=== PATIENT | female | born 1965 | race Caucasian/White ===

== ENCOUNTER → 2018-04-30 | Outpatient (CLI) | payer BC ==
--- NOTE | 2018-04-30 09:44 | MR ---
EXAMINATION TYPE: MR pelvis wo/w con DATE OF EXAM: 04/30/2018 COMPARISON: None HISTORY: Hip and leg pain, breast CA, 2015 CONTRAST: Standard multiplanar, multisequence MRI departmental protocol utilizing 7.5 mL intravenous Gadavist g adolinium contrast. Bowel peristalsis results in significant artifact somewhat limiting examination. FINDINGS: Uterus: The uterus measures 7.4 x 2.5 cm. No distinct uterine mass. Endometrium: Endometrium is within normal limits and measures 5 mm in greatest AP dimension. No evide nce for endometrial irregularity. Ovaries: Ovaries are diminutive in size. No evidence for ovarian cystic or solid lesion. No adnexal m asses appreciated. Free fluid: None. No evidence for pelvic adenopathy. Osseous structures appear to be intact without evidence for fracture or osseous lesion. Degenerative changes lumbar spine. No evidence for bony metastatic disease. Correlate with upcoming bone scan. No soft tissue masses appreciated. IMPRESSION: 1. No distinct abnormality to account for the patient's pelvic pain.
--- NOTE | 2018-04-30 16:00 | NM ---
EXAMINATION TYPE: NM bone scan whole body DATE OF EXAM: 04/30/2018 COMPARISON: None HISTORY: Pain, breast cancer history Delayed whole-body scanning was performed following the injection of 26.9 mCi Tc 99m MDP. Images wer e acquired 3.5 hours post injection. FINDINGS: There is some mild uptake at the pedicles of the L4 vertebral body and on the left at L5 there is mikayla e focal radiotracer accumulation at the sternomanubrial junction. IMPRESSION: 1. Scattered nonspecific areas of uptake including the lower lumbar spine pedicles external manubrial junction degenerative changes as well as early metastasis could be included within the differential.
== END | disposition home or self-care (01) ==
LOC: RADMRIMAIN 07:58
PROVIDERS: ATTEND Internal Medicine Hematology & Oncology
DX: C50.919 Malignant neoplasm of unspecified site of unspecified female breast (principal); R52 Pain, unspecified
CPT/HCPCS: 72197; 78306; A9503; A9581

== ENCOUNTER → 2018-06-03 | Outpatient (CLI) | payer BC ==
--- NOTE | 2018-06-03 12:33 | MR ---
EXAMINATION TYPE: MR tspine/lspine wo/w con DATE OF EXAM: 06/03/2018 COMPARISON: Bone scan 04/30/2018 HISTORY: pain, mets, breast ca TECHNIQUE: Multiplanar, multisequence images of the lumbar and thoracic spine is performed without and with IV c ontrast, utilizing 8 mL intravenous Gadavist FINDINGS: Sagittal images of the lumbar spine show vertebral body heights and alignment is remarkable for minimal anterolisthesis grade 1 L3-4. The intervertebral discs demonstrate loss of disc height s ignal compatible disc desiccation and degenerative disc disease, there is multilevel spondylosis with endplate discogenic marrow signal change. The conus medullaris is normal in position and signal. Ellis morl's node formation present at inferior endplate L1 and T12, superior endplate L4 and L2 L5-S1: No evident disc herniation, no significant central canal stenosis. No foraminal encroachment. There is facet arthropathy. L4-5: Increase signal in the posterior aspect of the disc may be due to an annular tear, there is pos terior broad-based disc bulge present, facet arthropathy with hypertrophy ligamentum flavum encroache s somewhat on the lateral recesses, circumferential disc bulge encroaches somewhat on the neural fora men right greater than left. There is a trefoil appearance of the thecal sac, mild to moderate centra l canal stenosis. L3-4: Listhesis contributes to cause moderate spinal stenosis or facet arthropathy with hypertrophy l igamentum flavum causing posterior lateral mass effect on the thecal sac, listhesis also contributes to cause bilateral foraminal encroachment. L2-3: Broad-based posterior disc bulge is mild anterior mass effect on the thecal sac, no significant central canal stenosis. There is facet arthropathy, no significant foraminal encroachment. L1-2: Mild posterior broad-based disc bulge causes slight anterior mass effect on the thecal sac. No significant central stenosis or foraminal encroachment. No significant abnormal enhancement following contrast administration IMPRESSION: Degenerative disc disease, spinal stenosis, facet arthropathy and foraminal encroachment. Metastatic disease is not evident. Thoracic spine MRI: Thoracic vertebral bodies show preserved height and alignment. There is no signif icant spinal stenosis, foraminal encroachment. There is multilevel spondylosis with endplate discogen ic marrow signal change. Multilevel loss of disc height and signal compatible disc desiccation and de generative disc disease. C7-T1 shows a posterior disc bulge causing mild anterior mass effect on the thecal sac. T10-11 shows posterior extension of disc complex causing mild anterior mass effect on the thecal sac, there is some facet arthropathy encroaching posterior laterally causing some local mass effect. Face t arthropathy also noted at the lower thoracic level. Mild disc bulges noted at T9-10. There is no abnormal enhancement following contrast menstruation. IMPRESSION: Degenerative disc disease.
== END | disposition home or self-care (01) ==
LOC: RADMRIMAIN 09:19
PROVIDERS: ATTEND Internal Medicine Hematology & Oncology
DX: C50.919 Malignant neoplasm of unspecified site of unspecified female breast (principal); M48.061 Spinal stenosis, lumbar region without neurogenic claudication; M51.36 Other intervertebral disc degeneration, lumbar region; M51.34 Other intervertebral disc degeneration, thoracic region; M46.96 Unspecified inflammatory spondylopathy, lumbar region
CPT/HCPCS: 72157; 72158; A9581

== ENCOUNTER → 2018-12-18 | Outpatient (CLI) | payer BC ==
--- NOTE | 2018-12-18 08:41 | CT ---
EXAMINATION TYPE: CT brain wo/w con DATE OF EXAM: 12/18/2018 COMPARISON: None HISTORY: 53-year-old female with frequent Migraine, unspecified, not intractable TECHNIQUE: Examination was done in axial plane before and after administration of 100 mL Isovue 300 intravenous contrast. Coronal and sagittal reconstructions performed. CT DLP: 1784.2 mGycm Automated exposure control for dose reduction was used. FINDINGS: There is a calcified 1.2 cm round extra-axial lesion along the anterior midline falx. There is no evidence of acute intracranial hemorrhage, acute ischemic changes, mass effect, or extra -axial fluid collection. There is no effacement of cerebral sulci or basal subarachnoid cisterns. T here is no hydrocephalus. There is no midline shift. Madsen-white matter distinction is preserved. No other abnormal enhancing lesions. Dural venous sinuses are patent The patient's gaze is divergent. This may reflect underlying strabismus. Further clinical correlation recommended. Mastoid air cells and paranasal sinuses are clear. IMPRESSION: 1. The patient's gaze is frankly divergent. This may reflect underlying strabismus. Correlate with ph ysical exam findings. 2. A 1.2 cm round, calcified extra-axial lesion along the anterior midline falx suggestive of a menin gioma. Consider a 6-12 month follow-up MRI to reassess. 3. No acute intracranial abnormality seen.
== END | disposition home or self-care (01) ==
LOC: RADCTMAIN 06:43
PROVIDERS: ATTEND Family Medicine
DX: G93.89 Other specified disorders of brain (principal); G43.909 Migraine, unspecified, not intractable, without status migrainosus
CPT/HCPCS: 70470; Q9967

== ENCOUNTER → 2019-01-16 | Outpatient (CLI) | payer BC ==
--- NOTE | 2019-01-16 12:40 | MR ---
PRE AND POSTCONTRAST ENHANCED MRI OF THE BRAIN: CLINICAL HISTORY: R51 Headache CONTRAST: 7.5ml gadavist Multiplanar and multispin-echo imaging of the brain was performed both before and after the administr ation of contrast. The ventricles, basal cisterns and sulci overlying the cerebral convexities are within normal limits. There is no evidence for midline shift or mass effect. Acute intracranial hemorrhage or extra-axial collection is not evident. There are no abnormal areas of increased or decreased signal intensity within the brain parenchyma. Following contrast administration, there is no evidence for pathologic enhancement or enhancing mass. The paranasal sinuses and mastoid air cells are well-aerated. IMPRESSION: Unremarkable pre and postcontrast enhanced MRI of the brain.
== END | disposition home or self-care (01) ==
LOC: RADMRIMAIN 11:46
PROVIDERS: ATTEND Nurse Practitioner Adult Health
DX: R51 Headache (principal)
CPT/HCPCS: 70553; A9585

== ENCOUNTER → 2022-04-10 | Outpatient (CLI) | payer SELFPAY ==
--- NOTE | 2022-04-10 16:21 | US ---
EXAMINATION TYPE: US kidneys/renal and bladder DATE OF EXAM: 04/10/2022 COMPARISON: NONE CLINICAL HISTORY: 56-year-old female R31.9 Hematuria, M54.50 Low back pain. TECHNIQUE: Multiple sonographic images of the kidneys and bladder are obtained. FINDINGS: EXAM MEASUREMENTS: Right Kidney: 11.7 x 5.6 x 4.3 cm Left Kidney: 11.6 x 5.6 x 5.8 cm Right Kidney: There is mild pelviectasis versus an extrarenal pelvis. No calyceal dilatation to sugge st hydronephrosis. No discrete masses seen. Left Kidney: No hydronephrosis or masses seen Bladder: wnl Bilateral Jets seen: Yes IMPRESSION: 1. No hydronephrosis. 2. No renal calculus or kidney mass identified. However, note that ultrasound has low sensitivity for the detection of small calculi or small solid renal masses.
== END | disposition home or self-care (01) ==
LOC: RADUSWWP 13:10
PROVIDERS: ATTEND Internal Medicine Hematology & Oncology
DX: R31.9 Hematuria, unspecified (principal); M54.50 Low back pain, unspecified
CPT/HCPCS: 76770

== ENCOUNTER → 2022-05-21 | Outpatient (CLI) | payer SELFPAY ==
--- NOTE | 2022-05-22 02:54 | MR ---
EXAMINATION TYPE: MR lumbar spine wo/w con DATE OF EXAM: 05/21/2022 COMPARISON: 06/03/2018 HISTORY: Low back pain, history of breast cancer CONTRAST: Standard multiplanar, multisequence MRI departmental protocol images were obtained without contrast a nd with 7 ml mL intravenous Gadavist gadolinium contrast. The lumbar vertebrae have normal alignment. There is mild degenerative disc space narrowing throughou t the lumbar spine. No compression fracture. No lumbar paraspinal mass. There is hypertrophic facet a rthropathy and posterior disc bulging at L3-4 and L4-5. There is resultant moderate spinal stenosis. There is mild narrowing of the neural foramina due to disc space narrowing and facet arthropathy at m ultiple levels. No evidence of focal bone destruction. Contrast images show no pathologic enhancement . The sacroiliac joints are intact. IMPRESSION: No evidence of osseous metastatic disease. There is L3-4 and L4-5 bony spinal stenosis that has progressed compared to old exam. Mild posterior disc bulging at L3-4 and L4-5. Facet arthropathy. No fracture seen.
== END | disposition home or self-care (01) ==
LOC: RADMRIMAIN 15:24
PROVIDERS: ATTEND Internal Medicine Hematology & Oncology
DX: M47.816 Spondylosis without myelopathy or radiculopathy, lumbar region (principal); M51.86 Other intervertebral disc disorders, lumbar region; M48.061 Spinal stenosis, lumbar region without neurogenic claudication; M99.73 Connective tissue and disc stenosis of intervertebral foramina of lumbar region
CPT/HCPCS: 72158; A9585

== ENCOUNTER → 2023-10-16 | Outpatient (CLI) | payer OTHER ==
--- NOTE | 2023-10-16 18:17 | NM ---
EXAMINATION TYPE: NM bone scan whole body DATE OF EXAM: 10/16/2023 COMPARISON: NONE HISTORY: Breast cancer Delayed whole-body scanning was performed following the injection of 22.8 mCi Tc 99m MDP. Images wer e acquired 5.5 hours post injection. FINDINGS: There is a focal area of uptake at the sternomanubrial junction. Metastatic lesion is not excluded There is some mild uptake within the anterior right mandible and within the central upper and left la teral mid cervical spine. Findings are nonspecific but can be related to degenerative change. There i s focal uptake posteriorly at the L5 level. Metastasis at this level is not excluded. IMPRESSION: 1. Uptake within the region of the L5 pedicles. Metastasis not excluded. 2. Nonspecific uptake within the cervical spine and right mandible can be related to degenerative reno nges.
== END | disposition home or self-care (01) ==
LOC: RADNMMAIN 07:07
PROVIDERS: ATTEND Internal Medicine Hematology & Oncology
DX: C50.919 Malignant neoplasm of unspecified site of unspecified female breast (principal); F41.9 Anxiety disorder, unspecified; Z13.89 Encounter for screening for other disorder; M47.816 Spondylosis without myelopathy or radiculopathy, lumbar region
CPT/HCPCS: 78306; A9503

== ENCOUNTER → 2023-11-11 | Outpatient (CLI) | payer OTHER ==
--- NOTE | 2023-11-12 08:47 | MR ---
EXAMINATION TYPE: MR lumbar spine wo/w con DATE OF EXAM: 11/11/2023 7:25 PM CLINICAL INDICATION:Female, 58 years old with history of C50.919 MALIGNANT NEOPLASM OF UNSP SITE OF U NSPECI; PHH, Hx Breast cancer, Pain low back into buttocks and front of thighs COMPARISON: None TECHNIQUE: Multi planar, multi sequence imaging was performed utilizing: T1-weighted, T2-weighted, a nd turbo inversion recovery imaging of the lumbar spine. IV Contrast: 7.5 cc Gadavist. (None if empty) FINDINGS: Alignment: The lumbar vertebral bodies have preserved heights with grade 1 anterolisthesis of L3 on L 4 and L4 and L5. Cord: The conus medullaris and the distal spinal cord appear unremarkable with regards to their signa l intensity and morphology. Bones/Discs: Mild degeneration changes throughout the spine with osteophyte formation and facet joint arthropathy. There is inversion recovery edema the bilateral L4 and L5 pedicles. Intervertebral disc signal is maintained. New mass like postcontrast enhancement. T12-L1: No evidence of significant spinal canal stenosis or neural foraminal stenosis. L1-L2: No evidence of significant spinal canal stenosis. Facet joint arthropathy moderate bilateral n eural foraminal stenosis. L2-L3: No evidence of significant spinal canal stenosis. Facet joint arthropathy moderate bilateral n eural foraminal stenosis. L3-L4: Disc uncovering from grade 1 anterolisthesis and facet joint arthropathy with moderate to carmina re spinal canal stenosis and moderate bilateral neural foraminal stenosis. L4-L5: Disc uncovering from grade 1 anterolisthesis and facet joint arthropathy with moderate to carmina re spinal canal stenosis and moderate bilateral neural foraminal stenosis. Mild enhancement around th e facet joints. L5-S1: The disc is rounded posterior morphology without significant spinal canal stenosis. Facet join t arthropathy with mild bilateral neural foraminal stenosis. No significant spinal canal or neural foraminal stenosis in the remainder of the visualized levels. Other findings: None. IMPRESSION: 1. No definitive evidence of disc herniation. 2. Multilevel disc degeneration with associated osteoarthritic changes with multilevel moderate neur al foraminal stenosis 3. Grade 1 anterolisthesis of L3 on L4 and L4 and L5 with moderate to severe spinal canal stenosis a t these levels. There is associated bony edema likely stress reaction involving the pedicles at all L 4 and L5. 4. Mild enhancement around the L4-L5 facet joints likely reactive 2 degeneration. No masslike enhanc ement identified.
== END | disposition home or self-care (01) ==
LOC: RADMRIMAIN 17:54
PROVIDERS: ATTEND Internal Medicine Hematology & Oncology
DX: C50.919 Malignant neoplasm of unspecified site of unspecified female breast (principal); Z87.59 Personal history of other complications of pregnancy, childbirth and the puerperium
CPT/HCPCS: 72158; A9585

== ENCOUNTER → 2024-01-13 | Outpatient (CLI) | payer OTHER ==
--- NOTE | 2024-01-13 18:21 | CT ---
EXAMINATION TYPE: CT lumbar spine wo con DATE OF EXAM: 01/13/2024 4:41 PM COMPARISON: None HISTORY: Chronic lower back pain. CT DLP: 618.3 mGycm Automated exposure control for dose reduction was used. Technique: Unenhanced CT of the lumbar spine was performed. Bone and soft tissue window settings are submitted as well as coronal and sagittal reconstructions. Findings: The lumbar vertebral segments are normal in height and there is no evidence of fracture. There is a g rade 1 anterolisthesis of L3 on L4 and of L4 on L5. There is mild disc space narrowing and spondylosis at the L3-4 and L4-5 levels indicating mild degene rative disc disease. There is marked facet arthropathy at the L3-4, L4-5 and L5-S1 levels and mild facet arthropathy at th e L1-2 and L2-3 levels. Secondary to facet arthropathy, thickening of ligamentum flavum and the anterolisthesis, there is a s evere spinal stenosis at the L3-4 level and at the L4-5 level. Evaluation for disc herniation is limi brown by the technique but no large disc herniations are seen. IMPRESSION: 1. No lumbar spine fracture. 2. Grade 1 anterolisthesis of L3 on L4 and of L4 on L5. 3. Marked facet degeneration in the lower lumbar spine. 4. Severe spinal stenosis at the L3-4 and L4-5 levels.
== END | disposition home or self-care (01) ==
LOC: RADCTMAIN 15:31
PROVIDERS: ATTEND Orthopaedic Surgery
DX: M48.061 Spinal stenosis, lumbar region without neurogenic claudication (principal); M43.16 Spondylolisthesis, lumbar region
CPT/HCPCS: 72131

== ENCOUNTER 2024-07-28 07:00 | Observation (INO) | payer OTHER ==
[2024-07-27 12:29] VITALS: BMI 31.4
--- NOTE | 2024-07-27 19:47 | P.HPOR ---
History of Present Illness H&P Date: 07/27/24 .T:Title: Spine Surgery Clinical and Risk Review Razia is a 58 yo female presenting for evaluation of Low back pain and LE weakness as well as pain. It was my pleasure to have seen and examined Razia. In our visit today we have had a chance to go over subjective complaints, physical examination findings and treatments including the natural course history without intervention and various interventional options. The patients imaging demonstrates: L3-4 grade I spondylolisthesis, unstable, L4- 5 Grade I spondylolisthesis unstable, L3-5 Spondylosis with disc degeneration , height loss and facet arthropathy and bogginess due to slip and collapse that is moderate to severe with moderate to seveve central and b/l foraminal stenosis. On physical exam, Razia demonstrates LE paresthesias, low back pain, continuous despite conservative measuress like PT, HEP, Rx and OTC medications several rounds of Prednisone, MICHELLE and TFESI injetions as well as Flexeril, [place], Motrin, and several supplement trials for symptomatic treatment. LE weakness noted with DF due to compression and foraminal stenosis. I have explained to the patient that as their condition progresses it will cause further neurological deficits and eventual paralysis. Based on the patients imaging, physical exam, and the rapid progression and disabling nature of their symptoms, at this time I recommend surgery in the form or a: L3-5 decompression and fusion. I discussed the risk and benefits of this procedure at length with Razia. The patient agreed to considered pursuing the procedure abovementioned. Prior to surgery, she should follow up with her PCP (Cardio, ID, IM etc) for clearance. Questions were invited and answered, and the patient wishes to proceed as outlined below. IMPRESSION: 1. L3-4 AND L4-5 GRADE I SPONDYLOLISTHESIS, UNSTABLE 2. L3-5 SPONDYLOSIS WITH RADICULOPATHY 3. L3-5 STENOSIS WITH NEUROGENIC CLAUDICATION 4. FORAMINAL STENOSIS B/L L3-5 5. LOW BACK PAIN PLAN: Currently, I am recommendin.L3-5 OPEN POSTEOLATERAL AND INTERBODY FUSION WITH DECOMPRESSION AND STABILIZATION 2.Follow up with PCP for surgical clearance 3.Review of surgical risks and benefits as well as an educational packet on the proposed surgical procedure. Risks: All surgical procedures come with inherent risks, including those related to positioning, anesthesia, intraoperative findings, and postoperative complications. It is important to understand that surgery does not come with any guarantee of a successful outcome as complications and adverse events are always possible. The patient was given a handout in office today discussing the surgical procedure and risks associated with the intervention, both of which were discussed with the patient. These risks include but are not limited to the following: * Experiencing same, different or even worse symptoms in back, neck, arms, or legs compared to before surgery. Requiring further surgery or other forms of treatment presently or at some time in the future at same or other levels of the intended spine surgery. On an extreme but fortunately relatively rare basis severe complication such as blindness, stroke, heart attack, temporary and/or permanent nerve injury, paralysis, coma, or may occur, sometimes without known explanation. Surgical complications may include but are not limited to risk of infe ction, fluid accumulation in the surgical dissection site, including a seroma or hematoma, that requires additional surgery, wound drainage, bleeding, new numbness or weakness, vision changes/loss, spinal fluid leakage, non-healing and/or infected incision, headaches, difficulty or inability to swallow, hoarseness, hemopneumothorax, pneumothorax, impotence, retrograde ejaculation, vaginal dryness; injury to nerves, spinal cord, blood vessels, lymphatics or other vital organs (i.e., bowel injury, injury to the great vessels); heterotopic bone formation; complications related to the hardware such as screws, rods, cages including misplaced hardware, device failure, instrumentation at the wrong spine level, hardware fracture/breakage, or hardware loosening; vertebral failure of the spinal column above or below the newly placed hardware; retained surgical instrumentations or devices and the need for further surgery. * Medical risks of the planned spine surgery include but are not limited to generalized Infections to the whole body or local areas outside of the surgical site (sepsis), heart attack, bleeding, anaphylaxis, meningitis, seizure, epilepsy, hearing loss, burn crain, laceration of the head or other areas of the body, bruising, hypersensitivity of the skin, bladder over distension; allergic reaction; shoulder injury related to positioning; fat, blood and air clots to other areas of the body like heart, lungs, brain; failure of internal organs such as lungs, kidneys, liver and excessive bleeding. If blood transfusions are necessary, note that transfusions may caus e intolerance reactions such as anaphylaxis or other complex reactions. Despite best efforts, the results of spine surgery might not heal in terms of bone, soft tissues such as skin, fascia, ligaments, and joints. Additionally, in order to achieve best possible results, spine surgery may be carried out beyond the initially planned levels and involve decompression, fusion including insertion of hardware at levels other than the original intended area of surgical interest change some portions of the procedure in order to ensure the best possible outcomes. With spine surgery and spinal fusion, there are different off label uses of instrumentation (devices, implants and hardware) as well as biological substances (bone morphogenic proteins, demineralized bone matrix) as well as using extra bone from allograft sources (i.e. cadaver bone) or autograft (iliac crest bone, ribs, or the spine itself). The patient has been given information about these practices and their inherent risks and benefits. The patient has had a chance to review all the listed information, has been given print outs detailing this information, and has had all his/her questions answered to their satisfaction. It was my pleasure to have seen and examined Razia. In our visit today we have had a chance to go over my understanding of our patient's current condition, the natural course history without intervention and various interventional options. Questions were invited and answered, and the patient wishes to proceed as outlined above. I have seen and examined the patient for 25 minutes and we have spent more than 50% of the time in repeat and detailed counseling about the patient's condition, its natural course history with out and as much as can be predicted with surgery and re-review of various surgical treatment options. In conclusion, Razia requested we proceed with the above suggested surgery and are willing to accept risks and limitations of the suggested surgery as nature of the disease process and our best attempts at treatment for the condition. Thank you again for allowing us to be part of your patient's care. Please don't hesitate to contact me if you have any further questions. Signed and authenticated by AMANDA VARGAS DO COMPLEX AND MINIMALLY INVASIVE SPINE SURGERY [facility] [address] [place] [id number] Rx: cyclobenzaprine 10 mg tablet, 42, Ref: 0, take 1 tablet (10 mg) by oral route 3 times per day # SIGNED BY Amanda Vargas (GOO)06/24/2024 06:02PM Past Medical History Past Medical History: Cancer, Osteoarthritis (OA) Additional Past Medical History / Comment(s): RT BREAST CA. HAD CHEMO, LAST ON 05/05/15; RADIATION, LAST ON 08/03/15. glaucoma. Migraines.PVCs see's Dr. aYo put her on a beta joana- stopped taking made her stomach upset, states she left message at [facility]ilian's office Saturday07/24/24 History of Any Multi-Drug Resistant Organisms: None Reported Past Surgical History: Breast Surgery, Cholecystectomy, Orthopedic Surgery, Tubal Ligation Additional Past Surgical History / Comment(s): RT BREAST BIOPSY, BENIGN, 2007. LT LUMPECTOMY X2 - 01/26/15, 02/08/15. CTR VIPUL. PORT-A-CATH. Cataract for Glaucoma. Past Anesthesia/Blood Transfusion Reactions: Postoperative Nausea & Vomiting (PONV) Additional Past Anesthesia/Blood Transfusion Reaction / Comment(s): Only n/v with gallbladder surgery. Smoking Status: Former smoker - Past Family History Sister(s) Family Medical History: Cancer Medications and Allergies Home Medications Medication Instructions Recorded Confirmed Type Ibuprofen [Motrin] 800 mg PO Q8HR PRN 08/09/15 07/27/24 History Denton-3 Fatty Acids [Denton-3] 1,400 mg PO DAILY 08/09/15 07/27/24 History Anastrozole [Arimidex] 1 mg PO DAILY 07/27/24 07/27/24 History Cholecalciferol [Vitamin D3 (125 125 mcg PO DAILY 07/27/24 07/27/24 History Mcg = 5000 Iu)] Cyanocobalamin [Vitamin B-12] 500 mcg PO DAILY 07/27/24 07/27/24 History Cyclobenzaprine [Flexeril] 5 mg PO DAILY 07/27/24 07/27/24 History Magnesium Oxide [Magnesium] 500 mg PO DAILY 07/27/24 07/27/24 History Metoprolol Succinate [Metoprolol 25 mg PO DIRECTED 07/27/24 07/27/24 History Succinate ER] Vitamin E Acetate [Vitamin E] 400 mg PO DAILY 07/27/24 07/27/24 History Allergies Allergy/AdvReac Type Severity Reaction Status Date / Time No Known Allergies Allergy Verified 07/27/24 12:14 Physical Examination Osteopathic Statement: *. No significant issues noted on an osteopathic structural exam other than those noted in the History and Physical/Consult.
[~2024-07-28 07:00] MED LIST: HYDROmorphone 0.5 MG/0.5 ML SYRINGE IVP PRN; LIDOCAINE 1% (10MG/ML) FOR IV START INTRADERMA PRN; TRANEXAMIC 1,000 MG/100ML-NACL 1,000 MG in SALINE 1 100ML.BAG IVPB PRN; fentaNYL (PF) 50 MCG/ML 2 ML AMP IV PRN
[2024-07-28] MEDS: IV FLUID CONTINUATION 1,000 ML IV ONE ×4 (08:01)
[2024-07-28] MEDS: MIDAZOLAM 2 MG/2 ML VIAL IV ONE (08:14)
[2024-07-28] MEDS: LACTATED RINGERS 1,000 ML IV SCH (08:15)
--- NOTE | 2024-07-28 08:28 | P.ANPRN ---
Procedure Note - Anesthesia - Invasive Line Left Arterial Line Time Out Performed: Yes Date of Procedure: 07/28/24 Time of Procedure: 08:15 Location of Patient: PreOp Preparation: Sterile Prep Arterial Line Location: Radial Ultrasound Used: Yes Purpose - Visualization and Identification of Vasculature: Yes Image Stored and Saved: Yes Narrative: Invasive line placement per sterile protocol utilized. AttemptX1.
[2024-07-28] MEDS: DEXAMETHASONE SOD PHOSPHATE 4 MG/ML 1 ML VIAL IV ONE (08:32)
[2024-07-28] MEDS: GABAPENTIN 300 MG CAP PO PRN (08:32)
[2024-07-28] MEDS: ACETAMINOPHEN TAB 500 MG TAB PO PRN (08:32)
[2024-07-28] MEDS: ONDANSETRON 4 MG/2 ML VIAL IVP PRN ×2 (08:32→20:31)
[2024-07-28] MEDS ORDERED: ROCURONIUM 10 MG/ML (5 ML VIAL) IV ONE (10:10)
[2024-07-28] MEDS ORDERED: MIDAZOLAM 2 MG/2 ML VIAL ONE (10:10)
[2024-07-28] MEDS ORDERED: fentaNYL (PF) 50 MCG/ML 2 ML AMP ONE (10:10)
[2024-07-28] MEDS ORDERED: ePHEDrine 50 MG/ML 1 ML VIAL ONE (10:10)
[2024-07-28] MEDS ORDERED: ALBUMIN HUMAN 5% (25gm) 500 ML VIAL IVPB ONE (10:10)
[2024-07-28] MEDS ORDERED: PROPOFOL 10 MG/ML 20 ML VIAL IV ONE (10:10)
[2024-07-28] MEDS ORDERED: HYDROmorphone (PF) 1 MG/ML ONE (10:10)
[2024-07-28] MEDS ORDERED: KETAMINE HCL IN 0.9 % NACL 50 MG/5 ML SYRINGE ONE (10:10)
[2024-07-28] MEDS ORDERED: PHENYLEPHRINE 10 MG/ML VIAL ONE (10:10)
[2024-07-28] MEDS ORDERED: TRANEXAMIC 1,000 MG/100ML-NACL PREMIX BAG ONE (10:10)
[2024-07-28] MEDS ORDERED: LIDOCAINE 1% INJ 10MG/ML (20 ML MDV) ONE (10:10)
[2024-07-28] MEDS ORDERED: SUCCINYLCHOLINE CHLORIDE 200 MG/10 ML VIAL IV ONE (10:10)
[2024-07-28] MEDS ORDERED: GLYCOPYRROLATE 0.2 MG/ML 2 ML VIAL ONE (10:10)
[2024-07-28] MEDS ORDERED: WATER FOR INJECTION, STERILE 10 ML VIAL IV ONE (10:10)
[2024-07-28] MEDS ORDERED: NEOSTIGMINE 1 MG/ML 10 ML VIAL ONE (10:10)
[2024-07-28] MEDS: THROMBIN (BOVINE) 5,000 UNIT VIAL TOPICAL ONE (12:21)
[2024-07-28] MEDS: LACTATED RINGERS 1,000 ML IV ONE (13:10)
[2024-07-28] MEDS: VANCOMYCIN 1,000 MG VIAL MISCELLANE ONE (13:11)
--- NOTE | 2024-07-28 13:54 | P.OP ---
Date of Procedure: 07/28/24 Preoperative Diagnosis: 1. L3-4 GRADE I SPONDYLOLISTHESIS, UNSTABLE 2. L4-5 GRADE I SPONDYLOLISTHESIS, UNSTABLE 3. L3-5 SPONDYLOSIS WITH STENOSIS AND NEUROGENIC CLAUDICATION 4. LE WEAKNESS 5. LE PARESTHESIAS Postoperative Diagnosis: 1. L3-4 GRADE I SPONDYLOLISTHESIS, UNSTABLE 2. L4-5 GRADE I SPONDYLOLISTHESIS, UNSTABLE 3. L3-5 SPONDYLOSIS WITH STENOSIS AND NEUROGENIC CLAUDICATION 4. LE WEAKNESS 5. LE PARESTHESIAS Procedure(s) Performed: L4-5 POSTEROLATERAL AND INTERBODY FUSION L3-4 POSTEROLATERAL AND INTERBODY FUSION L3-5 SEGMENTAL INSTRUMENTATION L3-4, L4-5 BILATERAL LAMINECTOMY, COMPLETE FACETECTOMY AND FORAMINOTOMY FOR NEURAL DECOMPRESSION AND CAGE PLACEMENT WELL DEFORMITY CORRECTION INSERTION OF BIOMECHANICAL DEVICES CAGES *2 L3-4, L4-5 USE OF [employer] NAVIGATION FOR SCREW PLACEMENT USE OF IONM ALL SCREWS TESTING > 18 mA Implants: ERIC EVERST RODS AND SCREWS GLOBUS SABLE CAGES *2 7-14, LONG 15 DEG DISC: CONTOUR, ARTHROCELL, ALLOCELL PL: EASY PACK MAGNATOS, AUTOGRAFT, DBM, FIBERS. Anesthesia: GETA Surgeon: Grant Vargas Street Light Repairer #1: Kirby Andrade (WAS PRESENT AND ASSISTED WITH ALL ASPECTS OF TH E CASE FROM POSITINO TO DRESSING PLACEMENT) Estimated Blood Loss (ml): 475 IV fluids (ml): 2,500 Urine output (ml): 1,200 Pathology: none sent Condition: stable Disposition: PACU Indications for Procedure: Razia is a 58 yo female presenting for evaluation of Low back pain and LE weakness as well as pain. It was my pleasure to have seen and examined Razia. In our visit today we have had a chance to go over subjective complaints, physical examination findings and treatments including the natural course history without intervention and various interventional options. The patients imaging demonstrates: L3-4 grade I spondylolisthesis, unstable, L4- 5 Grade I spondylolisthesis unstable, L3-5 Spondylosis with disc degeneration , height loss and facet arthropathy and bogginess due to slip and collapse that is moderate to severe with moderate to seveve central and b/l foraminal stenosis. On physical exam, Razia demonstrates LE paresthesias, low back pain, continuous despite conservative measuress like PT, HEP, Rx and OTC medications several rounds of Prednisone, MICHELLE and TFESI injetions as well as Flexeril, [place], Motrin, and several supplement trials for symptomatic treatment. LE weakness noted with DF due to compression and foraminal stenosis. I have explained to the patient that as their condition progresses it will cause further neurological deficits and eventual paralysis. Based on the patients imaging, physical exam, and the rapid progression and disabling nature of their symptoms, at this time I recommend surgery in the form or a: L3-5 decompression and fusion. I discussed the risk and benefits of this procedure at length with Razia. The patient agreed to considered pursuing the procedure abovementioned. Prior to surgery, she should follow up with her PCP (Cardio, ID, IM etc) for clearance. Questions were invited and answered, and the patient wishes to proceed as outlined below. IMPRESSION: 1. L3-4 AND L4-5 GRADE I SPONDYLOLISTHESIS, UNSTABLE 2. L3-5 SPONDYLOSIS WITH RADICULOPATHY 3. L3-5 STENOSIS WITH NEUROGENIC CLAUDICATION 4. FORAMINAL STENOSIS B/L L3-5 5. LOW BACK PAIN PLAN: Currently, I am recommendin.L3-5 OPEN POSTEOLATERAL AND INTERBODY FUSION WITH DECOMPRESSION AND STABILIZATION Description of Procedure: L3-5 OPEN DECOMPRESSION AND FUSION, FACET ABSCESS (ROBERTA) The patient was seen and examined in the preoperative area. All preoperative protocols were followed. Informed consent was obtained, risks and benefits of the procedure were discussed at length. Risks including bleeding infection damage to the surrounding tissue and risk of reoperation were discussed with the patient. Risk of anesthesia up to and including was discussed with the patient. These are outlined in the risk review. They were willing to accept these risks and all the risks of surgery. The patient was given a weight-based dose of antibiotics in the form of 2 g Ancef. The patient was seen and evaluated by the anesthesia team who deemed them fit for surgery. The site was marked, the patient was willing to proceed with the procedure. The patient was transferred to the operative suite by the Department of a nesthesia. They were then drifted off to sleep by the department anesthesia and GETA was performed. The patient tolerated this well. Meraz catheter was placed by nursing staff, a-traumatically. Once confirmation of lines and ventilation the patient was transferred to a prone Nixon table very carefully. All bony prominences including wrists, elbows, axilla, chest, hips, and thighs, and feet were padded very well. Special attention was paid to the genitalia, and these were padded accordingly. SCDs were placed on bilateral lower extremities and were connected. Arms were well padded and placed on arm boards up and out in the 90/90 position. Once in position, again we confirmed good ventilation capabilities and that lines were running appropriately. The patients Lumbar spine was then exposed. 1010s were placed outlining the incision site. Standard alcohol was used to clean the incision site and allowed to dry. C-arm was used to needle localize the pedicles at L4-S1 and bio-severo the patient and confirm level for incision which was marked with a skin marker. Operative briefing was performed with all teams and everyone in agreement to proceed. The patient was then prepped and draped in a normal sterile fashion. Timeout was then performed, and all parties agreed with the procedure to be performed. Midline skin incision was made over the previously bio-marked area and di ssection taken down over the SP of L2-5. L3-5 was taken out over facet joints and TPs and a penfield 4 used to severo the L4 pedicle. Lateral image used to confirm levels. Once confirmed, screws were proceeded to be placed b/l at pedicles from L3-5 using Dragon Ports Navigation. An SP clamp was used, 3D C arm spin obtained and confirmed to be accurate. Once this was confirmed screws were placed using a navigated sydni, navigated awl-tap and navigated fast food delivery driver. Once screws were placed they were confirmed to be in good position using AP and Lateral fluoroscopy. The wound was then irrigated. Screws were tested and all tested above 18 mA. We then proceeded to decompression and cage placement. Attention was then turned to decompression, evacuation of epidural space and interbody fusion at L4-5. Bilateral laminectomy, complete facetectomy and foraminotomy performed at L4-5 using high speed sydni and Kerrison rongeur. The ligamentum was removed and the dural sac decompressed. Exiting and traversing roots visualized and decompressed. Neural elements were then protected, there was exuberant scar tissue formation around this area, as well as anterior scarring of the dura. This was carefully removed and the thecal sac mobilized over the disc space. The disc space was then accessed with an osteotome. Sequential shaving then done under lateral imaging and complete discectomy performed using tracie, pituitary and curette. Once good bleeding endplates accomplished and good height jew with trials, a combination of autograft, allograft and synthetic placed anterior in the disc space. The cage was then selected and impacted into place under lateral imaging. The cage was then expanded restoring height, lordosis and alignment. The cage was backfilled with bone graft through a funnel. The comfort filler was removed and the area inspected. Good cage placement, stable cage and no injuries. Area was irrigated copiously, and meticulous hemostasis achieved. Attention was then turned to interbody fusion at L3-4. Decompression was again done via bilateral laminectomy, complete facetectomy and foraminotomy performed at L3-4 using high speed sydni and Kerrison rongeur. The ligamentum was removed and the dural sac decompressed. Exiting and traversing roots visualized and decompressed. There was less scar tissues at this level, but still the thickened tissues surrounding the thecal sac and anteriorly on the disc space. These tissues along with tissues from L4-5 were sent for cultures and pathology as well. We also sent all harvested disc material from L3-4 and L4-5 for evaluation due to the unnatural nature of their constitution. Neural elements were then protected at L3-4, and disc space accessed with an osteotome. Vertebral body osteotomy was done here due to Sequential shaving then done under lateral imaging and complete discectomy performed using tracie, pituitary and curette. Once good bleeding endplates accomplished and good height jew with trials, a combination of autograft, allograft and synthetic placed anterior in the disc space. The cage was then selected and impacted into place under lateral imaging. The cage was then expanded restoring height, lordosis and alignment. The cage was backfilled with bone graft through a funnel. The comfort filler was removed and the area inspected. Good cage placement, stable cage and no injuries. Area was irrigated copiously, and meticulous hemostasis achieved. The wound and disc spaces were irrigated and meticulous hemostasis achieved. Rods were then sized and selected and placed into L5 screws b/l. Set screws locked these in place and then sequentially reduced into L3 and L4 b/l for alignment jew. This was accomplished. Set screws were then all placed and final tightened. A cross link was selected and placed and final tightened. TPs were then decorticated with a high speed sydni. The wound was irrigated with 3L Ancef irrigation, 3L gentamicin irrigation, 1L Irricept, 2L betadine solution and 3L NSS. Surgery was placed over the dura. Autograft and MagnatOs then placed in the posterolateral gutters and impacted into place. Deep drain placed and secured to the skin. Final images confirmed good placement of hardware and good reduction of listhesis as well as jew of height and lordosis. Fascia was then closed with #1 PDS. Deep subq closed with 0 Vicryl. Superficial subq closed with 2-0 Vicryl and skin with carlene. Wound edges approximated very well. Wound was then cleaned with alcohol and dried. Wounds dressed with Optifoam dressings. The patient was then transferred off the table back to their hospital bed a- traumatically. They were extubated by the department of anesthesia. They were then transferred to PACU in stable condition having tolerated the procedure with no complications.
--- NOTE | 2024-07-28 14:00 | XR ---
EXAMINATION TYPE: XR lumbar spine 2 or 3V DATE OF EXAM: 07/28/2024 CLINICAL HISTORY: pain TECHNIQUE: Lumbar fusion COMPARISON: None. FINDINGS: Operative changes of lumbar laminectomy and fusion at L3-4 and L4-5. Pedicular screws are in place as well as intervertebral spacers. Postoperative alignment appears near-anatomic. IMPRESSION: L3-L5 Fusion [facility], , 07/28/2024 1:58 PM
[2024-07-28] MEDS ORDERED: MAGNESIUM HYDROXIDE 2,400 MG/30 ML CUP PO PRN (14:20)
[2024-07-28] MEDS ORDERED: bisacodyL 10 MG SUPP RECTAL PRN (14:20)
[2024-07-28] MEDS ORDERED: HYDROmorphone 1 MG/ML 1 ML SYRINGE IVP PRN (14:20)
[2024-07-28] MEDS ORDERED: NA PHOS,M-B/NA PHOS,DI-BA 133 ML ENEMA RECTAL PRN (14:20)
[2024-07-28] MEDS: HYDROmorphone 0.5 MG/0.5 ML SYRINGE IVP PRN (16:19)
--- NOTE | 2024-07-28 17:58 | FL ---
EXAMINATION TYPE: FL guidance operating room DATE OF EXAM: 07/28/2024 1:47 PM COMPARISON: Pre Operative Images if available both CT/MRI or plain film CLINICAL INDICATION: Female, 58 years old with history of L3-L5 Fusion; TECHNIQUE: FL guidance operating room, multiple fluoroscopic images provided for procedure. L3-L5 Fusion 1.06min fluoro time 17.811 DAP 4 images. FINDINGS: IMPRESSION: 1. Report was generated for administrative purposes only. 2. Please see the operative/procedural note for further details. [facility], , 07/28/2024 5:56 PM
[2024-07-28] MEDS: ACETAMINOPHEN TAB 500 MG TAB PO SCH (18:03)
[2024-07-28] MEDS: KETOROLAC 15 MG/ML 1 ML VIAL IVP SCH (18:04)
--- NOTE | 2024-07-28 18:13 | P.CONS ---
History of Present Illness - Reason for Consult Consult date: 07/28/24 - History of Present Illness 58 year old F with PMH of Breast CA presents to [facility] for elective surgery. She L3-5 fusion and bilateral laminectomy with Dr. Vargas on 07/28. [facility] consulted for medical management of this patient. Patient reports 8/10 severity pain in her lower back. Pain is spastic. She reports no other complaints. General: non toxic, mild distress, appears at stated age Derm: warm, dry Head: atraumatic, normocephalic, symmetric Eyes: EOMI, no lid lag, anicteric sclera Mouth: no lip lesion, mucus membranes moist Cardiovascular: S1S2 reg, no murmur Lungs: CTA bilateral, no rhonchi, no rales, no accessory muscle use Ext: no gross muscle atrophy, no edema, no contractures Neuro: no focal neuro deficits Psych: Alert, oriented, appropriate affect + Meraz Based on my assessment of this patient, this patient meets a high complexity level of care. Breast CA: Anastrozole 1 mg PO QD. Status post L3-5 fusion and bilateral laminectomy POD 0 CODE STATUS: FULL CODE DVT Prophylaxis: SCD GI Prophylaxis: Designated medical POA if patient is not able to make medical decisions for themselves: I have reviewed the following senior sustainability consultant notes: OR note. I have reviewed the results of the following tests: I have ordered the following tests: I have discussed the care of this patient with the following independent historian: HANS. I have independently interpreted the following test below: I have discussed the management of this patient with the following physician: Past Medical History Past Medical History: Cancer, Osteoarthritis (OA) Additional Past Medical History / Comment(s): RT BREAST CA. HAD CHEMO, LAST ON 05/05/15; RADIATION, LAST ON 08/03/15. glaucoma. Migraines.PVCs see's Dr. Yao put her on a beta joana- stopped taking made her stomach upset, states she left message at Maximilian's office Saturday07/24/24 History of Any Multi-Drug Resistant Organisms: None Reported Past Surgical History: Breast Surgery, Cholecystectomy, Orthopedic Surgery, Tubal Ligation Additional Past Surgical History / Comment(s): RT BREAST BIOPSY, BENIGN, 2007. LT LUMPECTOMY X2 - 01/26/15, 02/08/15. CTR VIPUL. PORT-A-CATH. Cataract for Glaucoma. Past Anesthesia/Blood Transfusion Reactions: Postoperative Nausea & Vomiting (PONV) Additional Past Anesthesia/Blood Transfusion Reaction / Comm: Only n/v with gallbladder surgery. Smoking Status: Former smoker - Past Family History Sister(s) Family Medical History: Cancer Medications and Allergies Home Medications Medication Instructions Recorded Confirmed Type Ibuprofen [Motrin] 800 mg PO Q8HR PRN 08/09/15 07/28/24 History [place]-3 Fatty Acids [[place]-3] 1,400 mg PO DAILY 08/09/15 07/28/24 History Anastrozole [Arimidex] 1 mg PO DAILY 07/27/24 07/28/24 History Cholecalciferol [Vitamin D3 (125 125 mcg PO DAILY 07/27/24 07/28/24 History Mcg = 5000 Iu)] Cyanocobalamin [Vitamin B-12] 500 mcg PO DAILY 07/27/24 07/28/24 History Cyclobenzaprine [Flexeril] 5 mg PO DAILY 07/27/24 07/28/24 History Magnesium Oxide [Magnesium] 500 mg PO DAILY 07/27/24 07/28/24 History Metoprolol Succinate [Metoprolol 25 mg PO DIRECTED 07/27/24 07/28/24 History Succinate ER] Vitamin E Acetate [Vitamin E] 400 mg PO DAILY 07/27/24 07/28/24 History Allergies Allergy/AdvReac Type Severity Reaction Status Date / Time No Known Allergies Allergy Verified 07/28/24 07:32 Physical Exam Vitals: Vital Signs Temp Pulse Pulse Pulse Resp BP Pulse Ox 07/28/24 15:40 97.5 F L 65 17 96/62 98 07/28/24 15:15 69 18 97/64 98 07/28/24 15:00 72 17 107/63 99 07/28/24 14:45 66 16 93/55 99 07/28/24 14:30 68 18 106/57 100 07/28/24 14:15 89 17 94/61 100 07/28/24 14:09 97.0 F L 87 14 93/56 100 07/28/24 08:28 71 14 109/59 99 07/28/24 07:42 97.4 F L 64 16 126/65 98 Intake and Output 07/28/24 07/28/24 07/28/24 06:59 14:59 22:59 Intake Total 2250 Output Total 1375 50 Balance 875 -50 Intake: IV 2250 Output: Urine 900 50 Estimated Blood Loss 475 Other: Weight 79.2 kg
[2024-07-28] MEDS: SODIUM CHLORIDE 0.9% 1,000 ML IV ONE (22:01)
[2024-07-28] MEDS: SODIUM CHLORIDE 0.9% 1,000 ML IV SCH (23:04)
[2024-07-28] MEDS: HYDROcodone/APAP 10-325MG 1 EACH TAB PO PRN (23:04)
--- NOTE | 2024-07-29 01:21 | CT ---
EXAM: CT Lumbar Spine Without Intravenous Contrast CLINICAL HISTORY: Reason: s/p lumbar fusion TECHNIQUE: Axial computed tomography images of the lumbar spine without intravenous contrast. CTDI is 21 mGy and DLP is 804.3 mGy-cm. This CT exam was performed using one or more of the following dose reduction techniques: automated exposure control, adjustment of the mA and/or kV according to patient size, and/or use of iterative reconstruction technique. COMPARISON: No relevant prior studies available. FINDINGS: Vertebrae: Surgical changes status post discectomy, laminectomy, and fusion with instrumentation consisting pedicle screws tested posterior lateral rods extending from L3-L5. The hardware is intact. The alignment is within normal limits. The lumbar spine vertebral heights are within normal limits. No compression fracture or burst fracture is seen. Discs/spinal canal/neural foramina: Mild degenerative disc disease throughout the upper lumbar spine. Soft tissues: Unremarkable. Lungs: Mild bibasilar atelectasis in both lower lungs. Gallbladder and bile ducts: Previous cholecystectomy. Intraperitoneal space: Small amount of gas in the postsurgical bed as expected. No abscess or abnormal fluid collection is seen. IMPRESSION: Surgical changes status post instrumentation, laminectomy, and fusion from L3 12 5 per no acute fracture or subluxation is seen. No significant spinal stenosis is identified.
[2024-07-29 05:13] LABS: African American GFR (CKD) >90 (>60 ml/min/1.73 sqM); Anion Gap 6 mmol/L; Blood Urea Nitrogen 15 mg/dL (7-17); Calcium 8.6 mg/dL (8.4-10.2); Carbon Dioxide 18 mmol/L (22-30); Chloride 111 mmol/L (98-107); Glucose 98 mg/dL (74-99); Non-African American GFR(CKD) >90 (>60 ml/min/1.73 sqM); Potassium 4.1 mmol/L (3.5-5.1); Sodium 135 mmol/L (137-145)
--- NOTE | 2024-07-29 07:14 | P.PN ---
Subjective Progress Note Date: 07/29/24 Principal diagnosis: 1. L3-L4, L4-L5 grade 1 unstable spondylolisthesis 2. L3-L5 spondylosis with radiculopathy 3. L3-L5 stenosis with neurogenic claudication 4. L3-L5 bilateral foraminal stenosis 5. Mechanical low back pain Patient seen and examined this morning. Patient is sitting up in chair at bedside. She does report that her pain is managed on current regimen. Discussed with patient to transition into oral pain medication, patient verbalizes understanding. Meraz catheter has been discontinued and patient is due to void. Surgical incision to the lumbar spine, dressing is clean dry and intact with Hemovac present with 200 mL output overnight. Patient states that she notices improvement of radiculopathy and numbness and tingling into the right lower extremity since the procedure. Patient does report that a family member will be bring in LSO brace. Patient may be up with physical therapy without brace until it is delivered. No acute concerns at this time. Objective - Vital Signs Vital signs: Vital Signs Temp 98.7 F 07/29/24 02:00 Pulse 95 07/29/24 02:00 Resp 16 07/28/24 20:11 BP 91/55 07/29/24 02:00 Pulse Ox 95 07/29/24 02:00 FiO2 Intake & Output 07/28/24 07/28/24 07/29/24 06:59 18:59 06:59 Intake Total 2250 Output Total 1425 500 Balance 825 -500 Weight 79.2 kg 79.2 kg Intake: IV 2250 Output: Urine 950 500 Estimated Blood Loss 475 Other: Voiding Method Indwelling Catheter - Exam Physical Examination General: The patient is awake and alert, in no acute distress Skin: Skin is warm and dry with no obvious rashes or lesions. Surgical incision to the lumbar spine, dressing is clean dry and intact. Hemovac drain is present with 200 mL output overnight. Eye: Pupils are equal, round and reactive to light, extra-ocular movements are intact; there is normal conjunctiva bilaterally. Neck: The neck is supple, there is no tenderness and ROM intact. Cardiovascular: There is a regular rate and rhythm. No murmur, rub or gallop is appreciated. Respiratory: Respirations are non-labored, breath sounds are equal. Gastrointestinal: Soft, non-distended, non-tender abdomen. Back: There is no tenderness to palpation in the midline, paralumbar, parathoracic or buttocks region. There is no obvious deformity . Musculoskeletal: ROM limited secondary to pain and stiffness from surgical procedure. Right: Shoulder abduction 5/5, elbow flexors 5/5, wrist dorsiflexors 5/5. finger abductor 5/5, hoseman 5/5, hip flexor 4/5, knee flexor 4/5, ankle dorsiflexor 5/5, ankle plantarflexion 5/5 and extensor hallucis 5/5. Left: Shoulder abduction 5/5, elbow flexors 5/5, wrist dorsiflexors 5/5. finger abductor 5/5, hoseman 5/5, hip flexor 4/5, knee flexor 4/5, ankle dorsiflexor 5/5, ankle plantarflexion 5/5 and extensor hallucis 5/5. Neurological: CN 2-12 intact. There are no obvious motor or sensory deficits. Movement and coordination equal and intact. Sensory exam to light touch intact C5-T1 and intact from L2-S1. Reflexes 2/4 in bilateral upper and lower extremities. Negative Hoffmans, babinski, and clonus signs. Psychiatric: Cooperative, appropriate mood & affect, normal judgment. - Labs CBC & Chem 7: 07/29/24 03:44 Labs: Abnormal Lab Results - Last 24 Hours (Table) 07/29/24 Range/Units 03:44 Sodium 135 L (137-145) mmol/L Chloride 111 H (98-107) mmol/L Carbon Dioxide 18 L (22-30) mmol/L Assessment and Plan Assessment: Postop day 1: L3-L5 open decompression and fusion Plan: -Appreciate instructional design consultant and team management. -Activity: Ambulate QID, OOB all meals, up and about, limit lifting bending twisting to less than 5 lbs. Use walker or cane if needed for stability. -Daily PT/OT, increase ambulation strength and balance. -Brace when up and about, not needed in bed or chair -Patient reports family member will be bringing in LSO brace, patient may be up with physical therapy and Occupational Therapy until brace is delivered. -Pain control: Adequate at this time -Meds: reviewed -GI ppx: senna, Miralax -DVT PPX: Heparin -Hygiene: Maintain dressing clean and dry. Meticulous cleaning after BMs away from the incision site -Drains: Maintain for now. Continue to monitor and record output q shift. -Encourage IS 10x/hr -Dispo: Anticipate discharge home with homecare in 24-48hrs. *I reviewed and discussed this case with my attending Dr. Vargas, whom has reviewed this chart and films and is in agreement with assessment and plan of care as outlined above. I have personally seen and examined the patient, performed the documentation and the assessment and plan as written. Number of minutes spent on the visit: 20m.
[2024-07-29] MEDS: SENNOSIDES-DOCUSATE SODIUM 1 EACH TAB PO SCH (07:50)
[2024-07-29] MEDS: polyethylene glycoL 3350 17 GM POWD.PACK PO SCH (07:51)
[2024-07-29 08:44] LABS: Basophils # (A) 0.02 X 10*3/uL (0.00-0.10); Basophils % (A) 0.2 %; Eosinophils # (A) 0 X 10*3/uL (0.04-0.35); Eosinophils % (A) 0 %; HCT 26.9 % (37.2-46.3); HGB 9.1 g/dL (12.0-15.0); Lymphocytes # (A) 1.22 X 10*3/uL (0.90-5.00); Lymphocytes % (A) 12.7 %; MCH 31.7 pg (27.0-32.0); MCHC 33.8 g/dL (32.0-37.0); MCV 93.7 FL (80.0-97.0); Mean Platelet Volume 11.3 FL (9.5-12.2); Monocytes # (A) 0.52 X 10*3/uL (0.20-1.00); Monocytes % (A) 5.4 %; NRBC Per 100 WBC 0 X 10*3/uL (0.00-0.01); Neutrophils # (A) 7.78 X 10*3/uL (1.80-7.70); Neutrophils % (A) 81.4 %; Platelet Count 153 X 10*3/uL (140-440); RBC 2.87 X 10*6/uL (4.10-5.20); RDW 12.6 % (11.5-14.5); WBC 9.57 X 10*3/uL (4.50-10.00)
--- NOTE | 2024-07-29 11:42 | P.PN ---
Subjective Progress Note Date: 07/29/24 58 year old F with PMH of Breast CA presents to [facility] for elective surgery. She L3-5 fusion and bilateral laminectomy with Dr. Vargas on 07/28. [facility] consulted for medical management of this patient. 07/29 Patient reports 8/10 severity pain in her lower back. She felt a little dizzy this morning when standing up which resolved after sitting down. BP borderline low at 91/51 with HR of 48. Meraz catheter discontinued. CBC and BMP significant for RBC 2.87, Hg 9.1, Hct 26.9, Na 135, Cl 111, bicarb 18. General: non toxic, mild distress, appears at stated age Derm: warm, dry Head: atraumatic, normocephalic, symmetric Eyes: EOMI, no lid lag, anicteric sclera Mouth: no lip lesion, mucus membranes moist Cardiovascular: S1S2 bryan, no murmur Lungs: CTA bilateral, no rhonchi, no rales, no accessory muscle use Ext: no gross muscle atrophy, no edema, no contractures Neuro: no focal neuro deficits Psych: Alert, oriented, appropriate affect Based on my assessment of this patient, this patient meets a high complexity level of care. Sinus bradycardia: Previously on Metoprolol which she stopped due to side effects. History of PVCs. EKG ordered. Telemetry monitoring ordered. Check Mag level. Hypotension: Status post 1L NS bolus. Not on any antihypertensive medications. Continue NS at 100 cc/hr. Acute blood loss anemia: Unknown baseline. Expected result of surgery. Transfuse if Hg < 7. Breast CA: Anastrozole 1 mg PO QD. Status post L3-5 fusion and bilateral laminectomy POD 1 CODE STATUS: FULL CODE DVT Prophylaxis: SCD GI Prophylaxis: Designated medical POA if patient is not able to make medical decisions for themselves: I have reviewed the following life skills consultant notes: Ortho note. I have reviewed the results of the following tests: CBC, BMP I have ordered the following tests: CBC in the AM. Mag add on I have discussed the care of this patient with the following independent historian: HANS. I have independently interpreted the following test below: I have discussed the management of this patient with the following physician: Objective - Vital Signs Vital signs: Vital Signs Temp 97.8 F 07/29/24 07:10 Pulse 48 L 07/29/24 09:49 Resp 18 07/29/24 08:00 BP 91/51 07/29/24 09:49 Pulse Ox 95 07/29/24 09:49 FiO2 Intake & Output 07/28/24 07/29/24 07/29/24 18:59 06:59 18:59 Intake Total 2250 Output Total 1425 500 295 Balance 825 -500 -295 Weight 79.2 kg 79.2 kg Intake: IV 2250 Output: Drainage 295 Lower Back 295 Urine 950 500 Estimated Blood Loss 475 Other: Voiding Method Indwelling Catheter Bedside Commode # Voids 1 - Labs CBC & Chem 7: 07/29/24 03:44 07/29/24 03:44 Labs: Abnormal Lab Results - Last 24 Hours (Table) 07/29/24 07/29/24 Range/Units 03:44 03:44 RBC 2.87 L (4.10-5.20) X 10*6/uL Hgb 9.1 L (12.0-15.0) g/dL Hct 26.9 L (37.2-46.3) % Neutrophils # 7.78 H (1.80-7.70) X 10*3/uL Eosinophils # 0 L (0.04-0.35) X 10*3/uL Sodium 135 L (137-145) mmol/L Chloride 111 H (98-107) mmol/L Carbon Dioxide 18 L (22-30) mmol/L
[2024-07-29] MEDS: MAGNESIUM SULFATE-D5W PMX 1 GM in DEXTROSE/WATER 1 100ML.BAG IVPB SCH (17:01)
[2024-07-29] MEDS: CYCLOBENZAPRINE 5 MG TAB PO PRN (17:11)
[2024-07-30 03:55] LABS: HGB 9.5 gm/dL (11.4-16.0); Mean Platelet Volume 7.8; Platelet Count 174 k/uL (150-450); RBC 2.98 m/uL (3.80-5.40); RDW 13.1 % (11.5-15.5); WBC 6.7 k/uL (3.8-10.6)
--- NOTE | 2024-07-30 09:26 | P.PN ---
Subjective Progress Note Date: 07/30/24 Principal diagnosis: 1. L3-L4, L4-L5 grade 1 unstable spondylolisthesis 2. L3-L5 spondylosis with radiculopathy 3. L3-L5 stenosis with neurogenic claudication 4. L3-L5 bilateral foraminal stenosis 5. Mechanical low back pain Patient seen and examined this morning. Patient is sitting up in chair at bedside. She does report that her pain is managed on current regimen. Patient reports that she was unable to work with PT/OT due to her blood pressures running low. Informed patient that we will be dis continuing IV pain mediations and transitioning to oral. Patient verbalizes understanding. geology teacher RN did notify proposal manager writer last night that the hemovac drain had been pulled. Dressing this morning was CDI. Surgical incision is well approximated with carlene intact. No active drainage. New dressing has been applied. Patient is progressing well towards discharge. Objective - Vital Signs Vital signs: Vital Signs Temp 98.6 F 07/30/24 08:00 Pulse 68 07/30/24 08:00 Resp 16 07/30/24 08:00 BP 92/56 07/30/24 08:00 Pulse Ox 100 07/30/24 08:00 FiO2 Intake & Output 07/29/24 07/30/24 07/30/24 18:59 06:59 18:59 Output Total 295 Balance -295 Output: Drainage 295 Lower Back 295 Other: Voiding Method Bedside Commode Bedside Commode # Voids 2 1 - Exam Physical Examination General: The patient is awake and alert, in no acute distress Skin: Skin is warm and dry with no obvious rashes or lesions. Surgical incision to the lumbar spine, edges are approximated with carlene intact. No active drainage. New dressing applied. Eye: Pupils are equal, round and reactive to light, extra-ocular movements are intact; there is normal conjunctiva bilaterally. Neck: The neck is supple, there is no tenderness and ROM intact. Cardiovascular: There is a regular rate and rhythm. No murmur, rub or gallop is appreciated. Respiratory: Respirations are non-labored, breath sounds are equal. Gastrointestinal: Soft, non-distended, non-tender abdomen. Back: There is no tenderness to palpation in the midline, paralumbar, parathoracic or buttocks region. There is no obvious deformity . Musculoskeletal: ROM limited secondary to pain and stiffness from surgical procedure. Right: Shoulder abduction 5/5, elbow flexors 5/5, wrist dorsiflexors 5/5. finger abductor 5/5, food service clerk 5/5, hip flexor 4/5, knee flexor 4/5, ankle dorsiflexor 5/5, ankle plantarflexion 5/5 and extensor hallucis 5/5. Left: Shoulder abduction 5/5, elbow flexors 5/5, wrist dorsiflexors 5/5. finger abductor 5/5, food service clerk 5/5, hip flexor 4/5, knee flexor 4/5, ankle dorsiflexor 5/5, ankle plantarflexion 5/5 and extensor hallucis 5/5. Neurological: CN 2-12 intact. There are no obvious motor or sensory deficits. Movement and coordination equal and intact. Sensory exam to light touch intact C5-T1 and intact from L2-S1. Reflexes 2/4 in bilateral upper and lower extremities. Negative Hoffmans, babinski, and clonus signs. Psychiatric: Cooperative, appropriate mood & affect, normal judgment. - Labs CBC & Chem 7: 07/30/24 03:29 07/29/24 03:44 Labs: Abnormal Lab Results - Last 24 Hours (Table) 07/30/24 Range/Units 03:29 RBC 2.98 L (3.80-5.40) m/uL Hgb 9.5 L (11.4-16.0) gm/dL Hct 28.0 L (34.0-46.0) % Assessment and Plan Assessment: Postop day 2: L3-L5 open decompression and fusion Plan: -Appreciate agriculture consultant and team management. -Activity: Ambulate QID, OOB all meals, up and about, limit lifting bending twisting to less than 5 lbs. Use walker or cane if needed for stability. -Daily PT/OT, increase ambulation strength and balance. -Brace when up and about, not needed in bed or chair -Pain control: Adequate at this time -Meds: reviewed -GI ppx: senna, Miralax -DVT PPX: TEDS, SCDs -Hygiene: Maintain dressing clean and dry. Meticulous cleaning after BMs away from the incision site -Encourage IS 10x/hr -Dispo: Anticipate discharge home with homecare later today vs tomorrow. *I reviewed and discussed this case with my attending Dr. Vargas, whom has reviewed this chart and films and is in agreement with assessment and plan of care as outlined above. I have personally seen and examined the patient, performed the documentation and the assessment and plan as written. Number of minutes spent on the visit: 20m.
--- NOTE | 2024-07-30 15:05 | P.PN ---
Subjective Progress Note Date: 07/30/24 58 year old F with PMH of Breast CA presents to [facility] for elective surgery. She L3-5 fusion and bilateral laminectomy with Dr. Vargas on 07/28. [facility] consulted for medical management of this patient. 07/29 Patient reports 8/10 severity pain in her lower back. She felt a little dizzy this morning when standing up which resolved after sitting down. BP borderline low at 91/51 with HR of 48. Meraz catheter discontinued. CBC and BMP significant for RBC 2.87, Hg 9.1, Hct 26.9, Na 135, Cl 111, bicarb 18. 07/30 Patient continues to report lower back pain, slightly improved. Urinating freely. Passing gas. Most recent BP 92/56 HR 68. EKG done yesterday shows sinus rhythm with PVCs HR of 83. Mag is 1.7. CBC shows RBC 2.98, Hg 9.5, Hct 28. General: non toxic, mild distress, appears at stated age Derm: warm, dry Head: atraumatic, normocephalic, symmetric Eyes: EOMI, no lid lag, anicteric sclera Mouth: no lip lesion, mucus membranes moist Cardiovascular: S1S2 irreg, no murmur Lungs: CTA bilateral, no rhonchi, no rales, no accessory muscle use Ext: no gross muscle atrophy, no edema, no contractures Neuro: no focal neuro deficits Psych: Alert, oriented, appropriate affect Based on my assessment of this patient, this patient meets a high complexity level of care. Sinus bradycardia: Resolving. Previously on Metoprolol which she stopped due to side effects. History of PVCs. EKG as above. Telemetry monitoring. Hypotension: Status post 1L NS bolus. Not on any antihypertensive medications. Maintaining MAP > 65. Continue NS at 100 cc/hr. Acute blood loss anemia: Unknown baseline. Expected result of surgery. Transfuse if Hg < 7. Breast CA: Anastrozole 1 mg PO QD. Status post L3-5 fusion and bilateral laminectomy POD 2 CODE STATUS: FULL CODE DVT Prophylaxis: SCD GI Prophylaxis: Designated medical POA if patient is not able to make medical decisions for themselves: I have reviewed the following education sales consultant notes: Ortho note. I have reviewed the results of the following tests: CBC, Mag I have ordered the following tests: I have discussed the care of this patient with the following independent historian: I have independently interpreted the following test below: I have discussed the management of this patient with the following physician: Objective - Vital Signs Vital signs: Vital Signs Temp 98.6 F 07/30/24 08:00 Pulse 68 07/30/24 08:00 Resp 16 07/30/24 08:00 BP 92/56 07/30/24 08:00 Pulse Ox 100 07/30/24 08:00 FiO2 Intake & Output 07/29/24 07/30/24 07/30/24 18:59 06:59 18:59 Output Total 295 500 Balance -295 -500 Output: Drainage 295 Lower Back 295 Urine 500 Other: Voiding Method Bedside Commode Bedside Commode Bedside Commode # Voids 2 1 1 - Labs CBC & Chem 7: 07/30/24 03:29 07/29/24 03:44 Labs: Abnormal Lab Results - Last 24 Hours (Table) 07/30/24 Range/Units 03:29 RBC 2.98 L (3.80-5.40) m/uL Hgb 9.5 L (11.4-16.0) gm/dL Hct 28.0 L (34.0-46.0) %
[2024-07-31 07:28] VITALS: BP 105/63; PULSE 85; RESP 18; TEMP 97.7
--- NOTE | 2024-07-31 08:28 | P.PN ---
Subjective Progress Note Date: 07/31/24 Principal diagnosis: 1. L3-L4, L4-L5 grade 1 unstable spondylolisthesis 2. L3-L5 spondylosis with radiculopathy 3. L3-L5 stenosis with neurogenic claudication 4. L3-L5 bilateral foraminal stenosis 5. Mechanical low back pain Patient seen and examined this morning. Patient is resting comfortably in bed. She does report that her pain is managed on current regimen. Dressing to the lumbar spine is clean dry and intact. Patient states that she is looking forward to discharge later today. No acute concerns at this time. Objective - Vital Signs Vital signs: Vital Signs Temp 98.9 F 07/31/24 02:00 Pulse 77 07/31/24 02:00 Resp 17 07/31/24 02:00 BP 91/58 07/31/24 02:00 Pulse Ox 94 L 07/31/24 02:00 FiO2 Intake & Output 07/30/24 07/31/24 07/31/24 18:59 06:59 18:59 Intake Total 1280 Output Total 500 Balance 780 Intake: Intake, IV Titration 800 Amount Sodium Chloride 0.9% 1, 800 000 ml @ 100 mls/hr IV . Q10H RONALDO Rx#:[id number] Oral 480 Output: Urine 500 Other: Voiding Method Bedside Commode Toilet # Voids 2 1 - Exam Physical Examination General: The patient is awake and alert, in no acute distress Skin: Skin is warm and dry with no obvious rashes or lesions. Surgical incision to the lumbar spine, dressing is clean dry and intact Eye: Pupils are equal, round and reactive to light, extra-ocular movements are intact; there is normal conjunctiva bilaterally. Neck: The neck is supple, there is no tenderness and ROM intact. Cardiovascular: There is a regular rate and rhythm. No murmur, rub or gallop is appreciated. Respiratory: Respirations are non-labored, breath sounds are equal. Gastrointestinal: Soft, non-distended, non-tender abdomen. Back: There is no tenderness to palpation in the midline, paralumbar, parathoracic or buttocks region. There is no obvious deformity . Musculoskeletal: ROM limited secondary to pain and stiffness from surgical procedure. Right: Shoulder abduction 5/5, elbow flexors 5/5, wrist dorsiflexors 5/5. finger abductor 5/5, efficiency engineer 5/5, hip flexor 4/5, knee flexor 4/5, ankle dorsiflexor 5/5, ankle plantarflexion 5/5 and extensor hallucis 5/5. Left: Shoulder abduction 5/5, elbow flexors 5/5, wrist dorsiflexors 5/5. finger abductor 5/5, efficiency engineer 5/5, hip flexor 4/5, knee flexor 4/5, ankle dorsiflexor 5/5, ankle plantarflexion 5/5 and extensor hallucis 5/5. Neurological: CN 2-12 intact. There are no obvious motor or sensory deficits. Movement and coordination equal and intact. Sensory exam to light touch intact C5-T1 and intact from L2-S1. Reflexes 2/4 in bilateral upper and lower extremities. Negative Hoffmans, babinski, and clonus signs. Psychiatric: Cooperative, appropriate mood & affect, normal judgment. - Labs CBC & Chem 7: 07/30/24 03:29 07/29/24 03:44 Assessment and Plan Assessment: Postop day 3: L3-L5 open decompression and fusion Plan: -Appreciate new home sales consultant and team management. -Activity: Ambulate QID, OOB all meals, up and about, limit lifting bending twi sting to less than 5 lbs. Use walker or cane if needed for stability. -Daily PT/OT, increase ambulation strength and balance. -Brace when up and about, not needed in bed or chair -Pain control: Adequate at this time -Meds: reviewed -GI ppx: senna, Miralax -DVT PPX: TEDS, SCDs -Hygiene: Maintain dressing clean and dry. Meticulous cleaning after BMs away from the incision site -Encourage IS 10x/hr -Dispo: Discharge home with homecare later today *I reviewed and discussed this case with my attending Dr. Vargas, whom has reviewed this chart and films and is in agreement with assessment and plan of care as outlined above. I have personally seen and examined the patient, performed the documentation and the assessment and plan as written. Number of minutes spent on the visit: 20m.
--- NOTE | 2024-07-31 08:40 | P.DS ---
Providers Date of admission: 07/28/24 07:01 Expected date of discharge: 07/31/24 Attending physician: Grant Vargas DO Consults: 07/28/24 14:20 Consult Physician Routine Consulting Provider: Elizabeth Snowden Consult Reason/Comments: medical management Do you want consulting provider notified?: Yes Primary care physician: Stated None Hospital Course: Hospital Course: The patient was evaluated preoperatively and found to have the diagnosis of lumbar spondylosis with stenosis. They underwent appropriate preoperative care and were willing to undergo the intended procedure. They underwent a successful L3-L5 decompression and fusion, were recovered appropriately and sent to the floor. While on the floor they worked with physical therapy, occupational therapy and nursing to enhance their recovery experience. Their pain was well controlled through their stay and they were started on appropriate medications, DVT ppx modalities, activity and dietary needs. Daily labs were monitored closely, and transfusions were only used when necessary. Medicine as well as other consulting services have made their input and have helped with our team approach and multidisciplinary care. PT milestones have been met and passed and they have made the recommendation of home with home care for this patient and treating providers agree with this care path. The patient will be discharged home with appropriate medications, instructions and follow-up information and in stable condition. Patient Condition at Discharge: Good Plan - Discharge Summary Discharge Rx Participant: No New Discharge Prescriptions: New Cyclobenzaprine [Flexeril] 5 mg PO TID PRN #40 tablet PRN Reason: Muscle Spasm Sennosides/Docusate Sodium [Senna Plus 8.6-50 mg Tablet] 1 each PO DAILY PRN #20 tab PRN Reason: Constipation cefaDROXiL [Duricef] 500 mg PO Q12HR #10 cap HYDROcodone/APAP 10-325MG [[place] 10-325] 1 tab PO Q4HR PRN #40 tab PRN Reason: Pain No Action Ibuprofen [Motrin] 800 mg PO Q8HR PRN PRN Reason: Pain Boston-3 Fatty Acids [Boston-3] 1,400 mg PO DAILY Vitamin E Acetate [Vitamin E] 400 mg PO DAILY Magnesium Oxide [Magnesium] 500 mg PO DAILY Cyclobenzaprine [Flexeril] 5 mg PO DAILY Cyanocobalamin [Vitamin B-12] 500 mcg PO DAILY Cholecalciferol [Vitamin D3 (125 Mcg = 5000 Iu)] 125 mcg PO DAILY Anastrozole [Arimidex] 1 mg PO DAILY Metoprolol Succinate [Metoprolol Succinate ER] 25 mg PO DIRECTED Discharge Medication List Ibuprofen [Motrin] 800 mg PO Q8HR PRN 08/09/15 [History] Boston-3 Fatty Acids [Boston-3] 1,400 mg PO DAILY 08/09/15 [History] Anastrozole [Arimidex] 1 mg PO DAILY 07/27/24 [History] Cholecalciferol [Vitamin D3 (125 Mcg = 5000 Iu)] 125 mcg PO DAILY 07/27/24 [History] Cyanocobalamin [Vitamin B-12] 500 mcg PO DAILY 07/27/24 [History] Cyclobenzaprine [Flexeril] 5 mg PO DAILY 07/27/24 [History] Magnesium Oxide [Magnesium] 500 mg PO DAILY 07/27/24 [History] Metoprolol Succinate [Metoprolol Succinate ER] 25 mg PO DIRECTED 07/27/24 [History] Vitamin E Acetate [Vitamin E] 400 mg PO DAILY 07/27/24 [History] Cyclobenzaprine [Flexeril] 5 mg PO TID PRN #40 tablet 07/31/24 [Rx] HYDROcodone/APAP 10-325MG [[place] 10-325] 1 tab PO Q4HR PRN #40 tab 07/31/24 [Rx] Sennosides/Docusate Sodium [Senna Plus 8.6-50 mg Tablet] 1 each PO DAILY PRN #20 tab 07/31/24 [Rx] cefaDROXiL [Duricef] 500 mg PO Q12HR #10 cap 07/31/24 [Rx] Follow up Appointment(s)/Referral(s): [facility] [NON-STAFF] - As Needed (walker) Vi Ann NPC [Nurse Practitioner] - 08/12/24 2:30 pm [facility], [NON-STAFF] - As Needed Activity/Diet/Wound Care/Special Instructions: Spine Discharge and Recovery Instructions Date of Surgery: 07/28/2024 Diagnosis: Lumbar spondylosis with stenosis Procedure: L3-L5 decompression and fusion Medications: See medication list All medication refills should be obtained through your primary care doctor or your clinic spine surgeon. Please discuss prescription refills at your follow up appointment. Do not call the hospital for medication refills. Activity: Encourage ambulation with assist of walker, Up and about 6-8x daily PT/OT daily work on balance, strength and mobility Up in chair with all meals Shower daily Brace: Use brace when up and about, do not wear in bed or shower Dressing: Leave your dressing in place for a total of 3 days post operatively. Then you may remove your dressing and leave open to air. Keep the area clean and if not able to keep area clean, then cover with sterile gauze and tape. Showering: You may shower 3 days after your procedure allowing soap and water to run over incision. Do not scrub. Do not soak. Blot dry. Follow up: Please confirm a follow up appointment with your surgeon 2 weeks post operatively. Please make an appointment to follow up with your PCP in 1-2 weeks after surgery for evaluation '3 phase, 3-week plan' POST OP WEEKS 1-3 1. Lifting/carrying/pushing/pulling limited to less than 5 pounds. 2. Do not sit for longer than 15 minutes at one time. Get up and walk around. Prolonged sitting is NOT advised. If you lay down, see if you can tolerate laying down on you front (belly side) 3. Walk for periods of 15 minutes = 1 mile but no longer; do it multiple times times each day. 4. Ice your low back after activity. POST OP WEEKS 3-6 1. Lifting limited to less than 20 pounds. 2. Do not sit for longer than 30 minutes at a time. Frequently change positions. Use a sit-to stand workstation or take frequent breaks from sitting if you have returned to work. 3. Walk for 30 minutes each day. If possible, do these three or more times a day POST OP WEEKS 6+ At your 6-week appointment we will give you a physical therapy referral to focus on a core stabilization and strengthening program. You should also work on leg & buttock strengthening, hamstring & quadriceps stretching, and continue a low im pact aerobic activity program such as swimming, walking, or riding a stationary bicycle. During the initial 6 weeks after your surgery, you are at the highest risk of re-injuring your spine. You should generally avoid BLT's (bending, lifting and twisting combination motions) and follow the above guidelines to reduce the chance of reinjury. You can anticipate post op appointments in our office at approximately 3 weeks and 6 weeks after your surgery. INCISION CARE: If your incision is not draining you do NOT need to cover it with a dressing. Keep your incision clean, dry and intact. In most cases, we apply skin glue, carlene or sutures to the incision at the time of surgery. This will be like a crust or have the appearance of a scab and will fall off in time on its own. The stitches or carlene need to be removed at 3 weeks post op appointment. You may begin to shower 3 days after surgery (this allows the glue to martins well). However, please avoid scrubbing the incision site or peeling off any of the skin glue. This will ensure optimal healing of your incision. Also, during this time avoid soaking the incision area in water - this includes swimming pools, hot tubs or baths. No ointments, lotions or oils on the incision until your surgeon allows. Leave carlene, sutures or glue in place. Neurological dysfunction that comes on suddenly can also be a sign of a stroke. Below some common symptoms of a stroke are listed: B - balance difficulty such as sudden onset walking or leaning to one side - NEW E - eye problem such as sudden double vision or trouble seeing on one side - NEW F - Facial weakness or numbness on one side - NEW A - Arm or leg weakness or numbness on one side - NEW S - Slurred speech or difficulty with word finding - NEW T - Time is BRAIN! Call 911 as soon as you recognize these symptoms Diet: Consume a regular diet rich in vegetables and lean protein such as chicken or fish. You should consume in a ratio of approximately 20% fats|40% carbohydrates|40%protein. Vegetables, sweet potatoes, brown rice or quinoa are examples of good carbohydrates. Chips, white bread, cookies and sweets/sugar are examples of bad carbohydrates. Limit your bad carbs, go wild with good carbs. "Life's Simple 7" Guidelines as per [place] [employer] These will help you reclaim your life after surgery and terrazzo helper in your recovery, keeping in mind your restrictions. (1) Get Active. Physical activity can help people lose weight, control high blood pressure and cholesterol, feel emotionally better, and sleep better. (2) Control Cholesterol. Avoid a diet high in saturated fat, trans fat, & cholesterol. Limit whole milk & cream, ice cream, butter, egg yolks, processed meats (like sausage and hot dogs), and fatty meats. Choose healthy foods that are low in saturated fat, trans fat and cholesterol which include: Fruits and vegetables, fiber rich grain products (like whole grain pasta and brown rice), lean meat such as chicken, fish, nuts, seeds, and legumes. (3) Eat Better. Eat small portions. Shop at the grocery with a list and do not stray from it. Tips for a healthy diet include: Limit sodium intake to less than 1500mg daily, avoid prepackaged, processed, and fast foods, choose a diet rich in fruits, vegetables, and whole grain, high fiber foods, and limit saturated & cholesterol in your diet. (4) Manage Blood Pressure. If you have high blood pressure, you should have a cuff at home so that you can check your blood pressure regularly. Be sure you have a good cuff. An arm one is generally better than a wrist one. Bring the cuff to a doctor's appointment to validate that the measurements that your cuff are taking are accurate. Take your blood pressure twice daily when you are sitting down and relaxing. Record the numbers in a log and bring this log with you to your doctors' appointments. (5) Lose Weight if your BMI is above 25. A healthy BMI is between 19-25. To calculate Your BMI, you may use a Standard BMI Calculator on the NIH BMI website: <www.nhlbi.nih.gov/guidelines/obesity/BMI/bmicalc.htm>. Weigh oneself daily. If you are overweight, set a goal to lose weight. A pound a week loss if needed is a good target. (6) Reduce Blood Sugar. Limit foods and liquids with "added sugars." (Added voss gars include sucrose, fructose, glucose, maltose, dextrose, high fructose corn syrup, corn syrup, concentrated fruit juice and honey). (7) Stop Smoking. If you smoke, quitting smoking is one of the best things that you can do for your health. Smoking increases your risk of heart attack, stroke, and peripheral vascular disease, which is a build-up of plaque in your arteries. Please discard all the cigarettes and lighters in your house. Have a plan for what you will do when you have the urge to smoke. Direct and second- hand smoke shortens your life as well as the lives of your family, friends and others around you. For your health and the health of those around you, please consider quitting! Proper Bending Body Mechanics: Maintain a wide stance with one foot slightly in front of the other. Keep your back straight. Bend utilizing the strength in your hips and knees. Do not bend at the waist. Maintain the lifted object at your waist-level close to your body. Avoid lifting weight that causes immediately pain or pain anywhere in the body afterwards. Smoking/Nicotine If there was ever one thing that you could do to increase your overall health, decrease your risk of cardiovascular problems by about 39% the second you make the choice, it is to STOP SMOKING. Your body's most instant gratification is the second you stop smoking. We have all heard the studies, read the articles but it is true, smoking is extremely bad for your overall health, and moreover it is detrimental to your bone health. Nicotine, IN ANY FORM, kills bone cells, prevents your body from healing fractures, and significantly prolongs healing after surgery. In spine surgery specifically, it increases your risk of not healing your bones to create a fusion and increases your risk of having a revision surgery due to this up to 60%. I know it is hard. I know it feels impossible. But there are ways. Take control of your life. We are here to help you through it. And when you are ready, ask us and we can direct you to help if you desire. Use the START Plan to Quit Smoking (please visit the Helpguide.org website listed below for more information): S = Set a quit date. Choose a date within the next 2 weeks, so you have enough time to prepare without losing your motivation to quit. If you mainly smoke at work, quit on the weekend, so you have a few days to adjust to the change. T = Tell family, friends, and co-workers that you plan to quit. Let your friends and family in on your plan to quit smoking and tell them you need their support and encouragement to stop. Look for a quit mary who wants to stop smoking as well. You can help each other get through the rough times. A = Anticipate and plan for the challenges you'll face while quitting. Most people who begin smoking again do so within the first 3 months. You can help yourself make it through by preparing ahead for common challenges, such as nicotine withdrawal and cigarette cravings. R = Remove cigarettes and other tobacco products from your home, car, and work. Throw away all your cigarettes (no emergency pack!), lighters, ashtrays, and matches. Wash your clothes and freshen up anything that smells like smoke. Shampoo your car, clean your drapes and carpet, and steam your furniture. T = Talk to your doctor about getting help to quit. Your doctor can prescribe medication to help with withdrawal and suggest other alternatives. If you can't see a doctor, you can get many products over the counter at your local pharmacy or grocery store, including the nicotine patch, nicotine lozenges, and nicotine gum. Resources for Quitting Smoking: <https://www.[place].gov/documents/[facility]/Quit_Tobacco_R esources_for_patients_313480_7.pdf> Supplementation: Take recommended dosages of Vitamin D and Calcium to help fortify your bones and help them to heal. See your health maintenance packet for dosages and recommended levels. DVT/VTE prophylaxis: You will be given compression stockings from the hospital. Wear these daily for the first two weeks after surgery. You may take them off at night. You may be prescribed a medication to help thin your blood. Take this as directed. If you are not prescribed this medication, early and frequent ambulation has been shown to be the best prophylaxis to deep vein thrombosis and sequelae related to this event. Discharge Disposition: HOME WITH HOME HEALTH SERVICES
--- NOTE | 2024-07-31 09:38 | CA ---
Transthoracic Echo Report Name: Razia Van Age: 58 Gender: F : 1965 Exam Date: 07/30/2024 11:28 Exam Location: [place] [facility] Ht (in): 62 Wt (lb): 174 Ordering Physician: Nolvia Valdez MD Attending/Referring Phys: [employer] Scientist Salina Stewart RDCS Procedure CPT: Indications: hypotension, bryan Cardiac Hx: Technical Quality: Fair Contrast 1: Total Dose (mL): Contrast 2: Total Dose (mL): MEASUREMENTS (Male / Female) Normal Values 2D ECHO LV Diastolic Diameter PLAX 5.4 cm 4.2 - 5.9 / 3.9 - 5.3 cm LV Systolic Diameter PLAX 3.3 cm IVS Diastolic Thickness 0.8 cm 0.6 - 1.0 / 0.6 - 0.9 cm LVPW Diastolic Thickness 1.1 cm 0.6 - 1.0 / 0.6 - 0.9 cm LV Relative Wall Thickness 0.4 RV Internal Dim ED PLAX 2.5 cm LA Systolic Diameter LX 3.5 cm 3.0 - 4.0 / 2.7 - 3.8 cm LV Diastolic Volume MOD BP 65.9 cm??? 67 - 155 / 56 - 104 cm??? LV Systolic Volume MOD BP 32.9 cm??? 22 - 58 / 19 - 49 cm??? LV Ejection Fraction MOD BP 50.1 % >= 55 % LV Cardiac Index MOD BP 822.1 cm???/min???m??? LV Diastolic Volume MOD 4C 58.3 cm??? LV Systolic Volume MOD 4C 32.1 cm??? LV Ejection Fraction MOD 4C 45.0 % LV Cardiac Index MOD 4C 653.0 cm???/min???m??? LV Diastolic Length 4C 6.9 cm LV Systolic Length 4C 5.4 cm LV Diastolic Volume MOD 2C 71.7 cm??? LV Systolic Volume MOD 2C 29.9 cm??? LV Ejection Fraction MOD 2C 58.3 % LV Cardiac Index MOD 2C 1039.7 cm???/min???m??? LV Diastolic Length 2C 7.3 cm LV Systolic Length 2C 6.1 cm LA Volume 55.8 cm??? 18 - 58 / 22 - 52 cm??? LA Volume Index 29.5 cm???/m??? 16 - 28 cm???/m??? M-MODE Aortic Root Diameter MM 2.9 cm LA Systolic Diameter MM 3.6 cm LA Ao Ratio MM 1.3 AV Cusp Separation MM 2.0 cm DOPPLER MV Area PHT 3.2 cm??? Mitral E Point Velocity 118.7 cm/s Mitral A Point Velocity 105.7 cm/s Mitral E to A Ratio 1.1 MV Deceleration Time 236.6 ms TR Peak Velocity 227.5 cm/s TR Peak Gradient 20.7 mmHg Right Ventricular Systolic Press 30.3 mmHg FINDINGS Left Ventricle Left ventricular ejection fraction is estimated at 45-50%. Mildly increased posterior wall thickness. Mildly decreased left ventricular ejection fraction. Left ventricular cavity size normal. Mildly reduced global left ventricular systolic function. Right Ventricle Normal right ventricular size and function. Right ventricular systolic pressure within normal limits. Right Atrium Mild right atrial dilatation. Left Atrium Mildly increased left atrial volume. Mitral Valve Structurally normal mitral valve. Trace to mild mitral regurgitation. No mitral stenosis. Aortic Valve Trileaflet aortic valve. No aortic valve stenosis or regurgitation. Tricuspid Valve Structurally normal tricuspid valve. Trace tricuspid regurgitation. No tricuspid stenosis. Pulmonic Valve Structurally normal pulmonic valve. Trace pulmonic regurgitation. No pulmonic stenosis. Pericardium No pericardial or pleural effusion. Aorta Normal size aortic root and proximal ascending aorta. CONCLUSIONS Normal LV size with fair contractility ejection fraction of about 45-50%. There is mild borderline concentric LVH. Mild mitral and tricuspid regurgitation. Previewed by: Dr. aPto Webster MD (Electronically Signed) Final Date: 31 July 2024 09:38
--- NOTE | 2024-07-31 11:56 | P.PN ---
Subjective Progress Note Date: 07/31/24 58 year old F with PMH of Breast CA presents to [facility] for elective surgery. She L3-5 fusion and bilateral laminectomy with Dr. Vargas on 07/28. [facility] Physicians consulted for medical management of this patient. 07/29 Patient reports 8/10 severity pain in her lower back. She felt a little dizzy this morning when standing up which resolved after sitting down. BP borderline low at 91/51 with HR of 48. Meraz catheter discontinued. CBC and BMP significant for RBC 2.87, Hg 9.1, Hct 26.9, Na 135, Cl 111, bicarb 18. 07/30 Patient continues to report lower back pain, slightly improved. Urinating freely. Passing gas. Most recent BP 92/56 HR 68. EKG done yesterday shows sinus rhythm with PVCs HR of 83. Mag is 1.7. CBC shows RBC 2.98, Hg 9.5, Hct 28. 07/31 Patient was seen and examined. Doing well. Back pain better controlled. Most recent BP 105/63 HR 85. Plans for discharge home today. Advised to discontinue Metoprolol. General: non toxic, no distress, appears at stated age Derm: warm, dry Head: atraumatic, normocephalic, symmetric Eyes: EOMI, no lid lag, anicteric sclera Mouth: no lip lesion, mucus membranes moist Cardiovascular: good distal perfusion in all 4 extremities Lungs: breathing comfortably, no accessory muscle use Ext: no gross muscle atrophy, no edema, no contractures Neuro: no focal neuro deficits Psych: Alert, oriented, appropriate affect Based on my assessment of this patient, this patient meets a high complexity level of care. Sinus bradycardia: Resolving. Previously on Metoprolol which she stopped due to side effects. History of PVCs. EKG as above. Telemetry monitoring. Hypotension: Status post 1L NS bolus. Not on any antihypertensive medications. Maintaining MAP > 65. Acute blood loss anemia: Unknown baseline. Expected result of surgery. Transfuse if Hg < 7. Breast CA: Anastrozole 1 mg PO QD. Status post L3-5 fusion and bilateral laminectomy POD 3 Medically stable for discharge. Med rec completed. CODE STATUS: FULL CODE DVT Prophylaxis: SCD GI Prophylaxis: Designated medical POA if patient is not able to make medical decisions for themselves: I have reviewed the following customer service sales consultant notes: Ortho note. I have reviewed the results of the following tests: I have ordered the following tests: I have discussed the care of this patient with the following independent historian: RN. I have independently interpreted the following test below: I have discussed the management of this patient with the following physician: Objective - Vital Signs Vital signs: Vital Signs Temp 97.7 F 07/31/24 07:26 Pulse 85 07/31/24 07:32 Resp 18 07/31/24 07:32 BP 105/63 07/31/24 07:26 Pulse Ox 95 07/31/24 07:26 FiO2 Intake & Output 07/30/24 07/31/24 07/31/24 18:59 06:59 18:59 Intake Total 1280 Output Total 500 Balance 780 Intake: Intake, IV Titration 800 Amount Sodium Chloride 0.9% 1, 800 000 ml @ 100 mls/hr IV . Q10H [facility] Rx#:[id number] Oral 480 Output: Urine 500 Other: Voiding Method Bedside Commode Toilet Toilet # Voids 2 1 - Labs CBC & Chem 7: 07/30/24 03:29 07/29/24 03:44
[2024-07-31] MEDS: HYDROcodone/APAP 10-325MG 1 EACH TAB PO PRN (12:18)
== END 2024-07-31 12:48 | disposition home health service (06) ==
LOC: OR 07:00 → 4SSUR 07:01
PROVIDERS: ADMIT Orthopaedic Surgery; ATTEND Orthopaedic Surgery
DX: M43.16 Spondylolisthesis, lumbar region (principal); M48.062 Spinal stenosis, lumbar region with neurogenic claudication; M47.26 Other spondylosis with radiculopathy, lumbar region; M51.16 Intervertebral disc disorders with radiculopathy, lumbar region; D62 Acute posthemorrhagic anemia; Z87.891 Personal history of nicotine dependence
CPT/HCPCS: 22633; 22634; 22853 ×2; 20930; 20936; 22842; 96365; 96366; 93306; 93005; 97161; 97166; 86900; 86901; 80048; 83735; 85025; 85027; 86850; 72100; 72131; G0378 ×4; C1713 ×2; C1734; J2250; J3370; J0330; J1100; J2710; J0690 ×2; J2405 ×3; J2003; J3010; J1171 ×3; J3475; P9045; J1885 ×3; J2704; J2371; J1596